=== PATIENT | male | born 1960 | race African-American/Black ===

== ENCOUNTER 2017-09-12 14:56 | Outpatient (CLI) | payer OTHER ==
--- NOTE | 2017-09-12 16:50 | MRI ---
MRI OF THE LEFT SHOULDER WITHOUT CONTRAST 09/12/17 INDICATION: Left shoulder pain for a few months with fall and loss of range of motion. FINDINGS: There is a complete tear of supraspinatus with retraction of the tendon to the level of the superior humeral head. No muscular atrophy is evident. There is mild tendinosis of the infraspinatus and subsc apularis. Biceps tendon is located. There is mild tendinosis of the intra-articular biceps tendon. No definite paralabral cyst is evident. Glenohumeral articular surface is normal appearing. There is ty pe II acromion. There is mild AC joint osteoarthrosis. No enlarged lymph nodes are evident. Motion ar tifact slightly limits detail. IMPRESSION: 1. Complete supraspinatus tendon disruption with retraction to the level of the superior humeral head. 2. Mild AC joint osteoarthrosis. 3. Mild tendinosis of the infraspinatus, supraspinatus and subscapularis. 4. Mild biceps tendinosis. POS: [facility]
== END 2017-09-12 14:57 | disposition home or self-care (01) ==
LOC: TBSIIMAG 14:56
PROVIDERS: ATTEND Family Medicine
DX: S46.912D Strain of unspecified muscle, fascia and tendon at shoulder and upper arm level, left arm, subsequent encounter (principal); M19.012 Primary osteoarthritis, left shoulder; M75.22 Bicipital tendinitis, left shoulder

== ENCOUNTER 2017-11-28 07:21 | Day surgery (SDC) | payer OTHER ==
[2017-11-21 09:27] VITALS: BMI 34.9
[2017-11-28 08:10] LABS: #Eosinphils 0.2 thou/uL (0.0-0.7); #Lymphocytes 1.4 thou/uL (1.20-3.40); #Monocytes 0.6 thou/uL (0.11-0.59); #Neutrophils 3.1 thou/uL (1.40-6.50); %Basophils 0.1 % (0.0-1.0); %Eosinophils 3.7 % (0.0-10.0); %Lymphocytes 26.4 % (21.0-51.0); %Monocytes 10.8 % (0.0-10.0); Hemoglobin 13.9 g/dL (14.0-18.0); Mean Corpuscular HGB CONC 33.5 g/dL (32.0-36.0); Mean Corpuscular Volume 89.7 fl (80.0-94.0); Mean Platelet Volume 8.1 fL (7.4-10.4); Platelet Count 190 thou/uL (130-400); RBC Distribution Width 12.5 % (11.5-14.5); Red Blood Cell (RBC) Count 4.64 mill/uL (4.70-6.10); White Blood Cell (WBC) Count 5.2 thou/uL (4.8-10.8)
[2017-11-28 08:17] LABS: INR-International Normal Ratio 1.1; Prothrombin Time 13.8 SEC (12.0-14.7)
[2017-11-28 08:28] LABS: Anion Gap 10 mmol/L (10-20); BUN (Urea Nitrogen) 11 mg/dL (8.4-25.7); Calc. Creatinine Clearance 182 mL/min (70-130); Calcium 9.4 mg/dL (7.8-10.44); Carbon Dioxide 26 mmol/L (22-29); Chloride 109 mmol/L (98-107); Estimated GFR-MDRD Greater than 90; Glucose 91 mg/dL (70-105); Sodium 141 mmol/L (136-145)
[2017-11-28] MEDS ORDERED: Ropivacaine 0.2% HCl/PF 20 ML ONE (08:58)
[2017-11-28] MEDS ORDERED: Fentanyl 100 MCG/2 ML VIAL ONE ×2 (08:58→09:18)
[2017-11-28] MEDS ORDERED: Midazolam HCl 2 mg/2 ml Vial ONE (08:58)
[2017-11-28] MEDS ORDERED: Lidocaine 0.5%/Epinephrine 1:200,000 50 ml Vial ONE (09:09)
[2017-11-28] MEDS ORDERED: CEFAZOLIN/Water 2 GM/20 ML SYRINGE ONE (09:30)
[2017-11-28] MEDS ORDERED: Ketorolac Tromethamine 30 MG/ML VIAL IVP PRN (10:30)
[2017-11-28] MEDS ORDERED: HYDROcodone/Acetaminophen 5/325 mg Tablet PO PRN ×2 (10:30)
[2017-11-28] MEDS ORDERED: Ondansetron HCl/PF 4 MG/2 ML Vial IVP PRN (10:30)
[2017-11-28] MEDS ORDERED: Ropivacaine 0.2% 550 ML 550 ML NERVE BLCK SCH (10:30)
[2017-11-28] MEDS ORDERED: traMADol HCl 50 MG TAB PO PRN ×2 (10:30)
[2017-11-28] MEDS ORDERED: Promethazine HCl 25 MG/ML VIAL IM PRN (10:30)
[2017-11-28] MEDS ORDERED: Zolpidem Tartrate 5 MG TAB PO PRN (10:30)
[2017-11-28] MEDS ORDERED: Fentanyl 100 MCG/2 ML VIAL IV PRN (10:31)
--- NOTE | 2017-11-28 14:03 | OP ---
DATE OF PROCEDURE: 11/28/2017 PREOPERATIVE DIAGNOSES: Left shoulder impingement with rotator cuff tear and biceps tendon tearing a nd instability. POSTOPERATIVE DIAGNOSES: Left shoulder impingement with rotator cuff tear and biceps tendon tearing and instability. PROCEDURE PERFORMED: 1. Left shoulder, closed manipulation. 2. Left shoulder arthroscopy with subacromial decompression. 3. Left shoulder arthroscopic rotator cuff repair. 4. Open biceps tenodesis. SURGEON: Patrick Abdi M.D. RESIDENTIAL REAL ESTATE ASSISTANT: Arnulfo Ngo PA-C. BLOOD LOSS: About 100 mL. COMPLICATIONS: None. ANESTHESIA: He had general anesthetic. He also had a preoperative block. IMPLANTS: For the rotator cuff repair, we used an [employer] titanium triple-loaded rotator cuff anchor followed by one 4.75 mm [employer] SwiveLock for the double-row repair. On the biceps, we used a 7 x 23 BioComposite Bio-Tenodesis screw also made by [employer]. DISPOSITION: Did go to the recovery room in stable condition. INDICATIONS: Mr. Hoyt is a 56-year-old male, who comes in complaining of continued left shoulder pain and discomfort and weakness despite nonoperative treatment. At this time, he opted to have agata andre. DESCRIPTION OF PROCEDURE: After all appropriate consent forms were explained and signed, he was take n to the operating room and at this time was given general anesthetic. Once the level of anesthesia was appropriate, he was rolled into the right lateral decubitus position with all bony prominences we ll-padded. Axillary roll was placed underneath the right axilla and the banegas bag was inflated to hol d him in this position. The left shoulder was then taken through full range of motion and was found to be tight, requiring manipulation to obtain full forward flexion. External rotation was not an iss ue. Once this was performed, the arm was then hung with 15 pounds of weight in standard arthroscopic fashion. The left shoulder and upper extremity were then prepped and draped in the standard surgica l fashion. Bony anatomic landmarks were drawn out and subacromial space was infiltrated with lidocai ne with epinephrine. At this time, posterior portal was established and the scope was placed into th e shoulder joint. Anterior working portal was then made using a needle localization technique. Ther e was a copious amount of hemorrhage in the joint. This was removed with a suction shaver device. T he articular cartilage of the humeral head and glenoid were in excellent condition. Subscapularis wa s intact. No loose bodies were noted in the axillary pouch. Full thickness cuff tear was noted. Th e biceps tendon was found to be nearly atretic in appearance and had some intratendinous tearing. It was attached to degenerative superior labrum with degenerative tear and found to have a copious amou nt of synovitis surrounding the biceps tendon, indicating chronic inflammation. At this time, a gree n cannula was placed through the anterior portal and an 18-gauge needle was placed through the biceps tendon to shuttle suture through this. The arthroscopic scissors were used to cut the tendon off th e superior labrum. This area was then debrided and the camera was then transitioned to the subacromi al space. Lateral working portal was made, and in this portal, a passport cannula was applied. The green cannula was repositioned into the subacromial space as well. At this time, we did remove the b ursa from off the underlying rotator cuff showing fully the extent of the rotator cuff tear. The edg es of the tear were freshened up with the shaver, and at this time, the surface energy and shaver wer e used to perform a small decompression. We then removed all soft tissue off of the greater tuberosi ty in preparation for repair. A triple-loaded titanium anchor was placed into the bone just off the articular cartilage and a scorpion device was used to show the sutures of this anchor through the rot ator cuff in a mattress fashion. Once this had been performed, all 6 times, the 3 sutures were tied. All 6 and the sutures were then taken through 1 SwiveLock and we punched and placed the SwiveLock o n the lateral cortex of the humerus for a double-row repair. All sutures were then cut. The arm was then taken through good range of motion showing our intact rotator cuff repair. Once this was done, the scope was removed and drained the shoulder. We then made a longitudinal incision where a previo usly placed suture was noted down the lateral aspect of the arm. We cut down through skin only. Bov ie was used to coagulate any brisk venous bleeding. Deltoid fascia was opened sharply and finger dis section was used to dissect in line with the deltoid fibers to get to the underlying transverse humer al ligament. This was opened up in its entirety, exposing the biceps tendon. This was then pulled o ut of the wound and sutured, the intraarticular portion being removed. At this time, we then placed our pin, reamed with a 7 mm reamer to a depth of 25 mm and placed a 7 x 23 Bio[employer]posite Bio-Tenodesis screw in standard fashion. The sutures were tied over top of this, and at this time, the wound was thoroughly irrigated and dried. The deltoid was allowed to close upon itself. Running Vicryl was us ed to close our deltoid fascia, 2-0 Vicryl and sutures were used to close skin. Bulky sterile dressi ng was then applied. The patient was awakened and he was taken to the recovery room in stable condit ion. All counts were correct at the end of the case and he did receive preoperative IV antibiotics.
[2017-11-28] MEDS ORDERED: Ropivacaine 0.5% HCl/PF (150 MG/30 ML VIAL) ONE (15:47)
[2017-11-28] MEDS ORDERED: Ondansetron HCl/PF 4 MG/2 ML Vial ONE (16:34)
[2017-11-28] MEDS ORDERED: Glycopyrrolate 0.2 MG/ML 5 ML SYRINGE ONE (16:34)
[2017-11-28] MEDS ORDERED: Dexamethasone 20 MG/5 ML VIAL ONE (16:34)
[2017-11-28] MEDS ORDERED: Propofol 200 MG/20 ML VIAL ONE (16:34)
[2017-11-28] MEDS ORDERED: Ketorolac Tromethamine 30 MG/ML VIAL ONE (16:34)
[2017-11-28] MEDS ORDERED: Lidocaine 1% PF 5 ML VIAL ONE (16:34)
== END 2017-11-28 15:32 | disposition home or self-care (01) ==
LOC: SDC 07:21
PROVIDERS: ATTEND Orthopaedic Surgery
PROC: 0LM24ZZ Reattachment of Left Shoulder Tendon, Percutaneous Endoscopic Approach (ICD-10-PCS; principal; 2017-11-28)
PROC: 0LS40ZZ Reposition Left Upper Arm Tendon, Open Approach (ICD-10-PCS; principal; 2017-11-28)
PROC: 0RNK4ZZ Release Left Shoulder Joint, Percutaneous Endoscopic Approach (ICD-10-PCS; principal; 2017-11-28)
DX: M75.122 Complete rotator cuff tear or rupture of left shoulder, not specified as traumatic (principal); S46.112A Strain of muscle, fascia and tendon of long head of biceps, left arm, initial encounter; I10 Essential (primary) hypertension; E78.5 Hyperlipidemia, unspecified; I71.9 Aortic aneurysm of unspecified site, without rupture; Z79.82 Long term (current) use of aspirin; Z79.01 Long term (current) use of anticoagulants; Z95.2 Presence of prosthetic heart valve; Z82.49 Family history of ischemic heart disease and other diseases of the circulatory system
CPT/HCPCS: 80048; 85025; 85610; 93005; 93010; A4306; C1713; J1100; J1885; J2001; J2250; J2405; J2704; J2795; J3010

== ENCOUNTER 2019-05-26 08:39 | Emergency (ER) | payer SELFPAY ==
--- NOTE | 2019-05-26 10:27 | CT ---
CT BRAIN WITHOUT CONTRAST: HISTORY: Headache and dizziness. FINDINGS: There are no previous exams for comparison. No evidence of acute infarct, hemorrhage, midline shift, or abnormal extraaxial fluid collections is seen. The ventricular size is normal and the basilar cisterns patent. The bony calvarium is intact. There is mild mucosal disease in the paranasal sinuses. IMPRESSION: No CT evidence of acute intracranial process. POS: [facility]
== END 2019-05-26 10:22 | disposition home or self-care (01) ==
LOC: ERS 08:39
DX: G43.909 Migraine, unspecified, not intractable, without status migrainosus (principal); Z79.899 Other long term (current) drug therapy
CPT/HCPCS: 70450